=== PATIENT | female | born 1960 | race Caucasian/White ===

== ENCOUNTER 2017-07-16 09:52 | Emergency (ER) | payer BC ==
--- NOTE | 2017-07-16 12:32 | UC ---
Shoulder Pain HPI - HPI Summary HPI Summary: Patient presents with complaints of right shoulder pain onset two months. She states at first the pain was intermittent and now it is constant. She states the pain originates over the deltoids muscle and radiates down the arm. She states the pain is throbbing, worse with movement, i.e. putting on my coat, hooking my bra, driving the car. She stats she can lift her arm over her head without much difficulty. She states she is very active, working all the time. She states she usually can stack wood, and that also is becoming very painful. She denies any injury or trauma, numbness or tingling. - History of Current Complaint Chief Complaint: UCUpperExtremity Stated Complaint: SHOULDER PAIN Time Seen by Provider: 07/16/17 12:11 Hx Obtained From: Patient ?: No Onset/Duration: Gradual Onset, Lasting Weeks Timing: Constant Severity Initially: Moderate Severity Currently: Severe Location Of Pain: Is Discrete @ - right deltoid Character: Throbbing Aggravating Factor(s): Movement, Extension, Abduction Alleviating Factor(s): Rest Associated Signs And Symptoms: Positive: Negative - Risk Factors Non-Orthopedic Risk Factor: Negative DVT Risk Factors: Negative Septic Arthritis Risk Factor: Negative - Allergies/Home Medications Allergies/Adverse Reactions: Allergies Allergy/AdvReac Type Severity Reaction Status Date / Time No Known Allergies Allergy Verified 07/16/17 10:42 Home Medications: Home Medications Acetaminophen [Tylenol] 650 mg PO Q6HR 07/16/17 [History Confirmed 07/16/17] Naproxen Sodium [Naproxen Sodium 220 mg] 220 mg PO DAILY 07/16/17 [History Confirmed 07/16/17] PMH/Surg Hx/FS Hx/Imm Hx Previously Healthy: Yes - Surgical History Surgical History: Yes Surgery Procedure, Year, and Place: 5 ovarian cysts removed- 1979. . hysterectomy. appendectomy - Family History Known Family History: Positive: Respiratory Disease, Other - IBS - Social History Occupation: Employed Full-time Lives: With Family Alcohol Use: Occasionally Substance Use Type: None Smoking Status (MU): Heavy Every Day Tobacco Smoker Type: Cigarettes Amount Used/How Often: 1 ppd Review of Systems Constitutional: Negative Skin: Negative Eyes: Negative ENT: Negative Respiratory: Negative Cardiovascular: Negative Gastrointestinal: Negative Genitourinary: Negative Motor: Negative Neurovascular: Negative Musculoskeletal: Decreased ROM, Myalgia Neurological: Negative Psychological: Negative All Other Systems Reviewed And Are Negative: Yes Physical Exam Triage Information Reviewed: Yes Appearance: Well-Appearing Vital Signs: Initial Vital Signs Temp 98.5 F 07/16/17 10:44 Pulse 78 07/16/17 10:44 Resp 16 07/16/17 10:44 BP 134/64 07/16/17 10:44 Pulse Ox 99 07/16/17 10:44 Vital Signs Reviewed: Yes Eye Exam: Normal ENT Exam: Normal Dental Exam: Normal Neck exam: Normal Neck: Positive: 1 Respiratory Exam: Normal Cardiovascular Exam: Normal Abdominal Exam: Normal Musculoskeletal: Positive: Other: - right shoulder; inspection no deformities, areas of eccymosis, erythma, or edema. ROM intact in all planes with reproducible pain on palpation of the deltoid muscle. Vasc+radial and ulnar pulses. Neuro;no deficits. Neurological Exam: Normal Psychological Exam: Normal Skin Exam: Normal Shoulder Course/Dx - Course Course Of Treatment: Patient presents with 2 month onset progressively worsening right shouler pain, she was neruo-vasc intact. xrays were obtained and were read by the radiologist as negative. Clinical findings are consistent with bursitis. Patient was treated with medrol dose pack and referred to the orthopedisist as follow up within 2 days. - Differential Dx/Diagnosis Differential Diagnosis/HQI/PQRI: Bursitis Provider Diagnoses: bursitis Discharge - Discharge Plan Condition: Stable Disposition: HOME Prescriptions: Methylprednisolone [Medrol Dosepak 4 MG*] 0 mg PO .SEE CLINT INSTRUCTION #1 tab Patient Education Materials: Shoulder Bursitis (ED) Referrals: Mesfin Reddy MD [Medical Doctor] - No Primary Care Phys,NOPCP [Primary Care Provider] - Additional Instructions: Your blood pressure was elevated at this visit. That does not mean you have hypertension, it is probably due to your current condition. Please follow up with your primary care provider.
--- NOTE | 2017-07-16 12:58 | RAD ---
INDICATION: Right shoulder pain. TECHNIQUE: 4 views of the right shoulder were obtained. FINDINGS: The bones are in normal alignment. No fracture is seen. Joint spaces appear maintained. IMPRESSION: NEGATIVE EXAM.
[2017-07-16 13:10] VITALS: BP 117/53
== END 2017-07-16 13:15 | disposition home or self-care (01) ==
LOC: UCEAST 09:52
DX: M71.9 Bursopathy, unspecified (principal); F17.210 Nicotine dependence, cigarettes, uncomplicated
CPT/HCPCS: 99202; G0463